=== PATIENT | female | born 1990 | race Caucasian/White ===

== ENCOUNTER 2023-04-06 12:30 | Emergency (ER) | payer OTHER ==
[~2023-04-06] VITALS: Ht 160 cm; Wt 59.0 kg
[~2023-04-06 12:30] MED LIST: CEPH500 PO; DOXY100 PO; HYDACE5 PO; IBUP800 PO; OXYACE5T PO; Peridex480 ML SS; SULTRIDS PO; Veetids 500500 MG PO
[2023-04-06 12:58] VITALS: BP 129/81
[2023-04-06] MEDS ORDERED: CLIN300 PO (13:29)
== END 2023-04-06 13:43 | disposition home or self-care (01) ==
LOC: ER 12:30
DX: S02.5XXA Fracture of tooth (traumatic), initial encounter for closed fracture (principal); K04.7 Periapical abscess without sinus; X58.XXXA Exposure to other specified factors, initial encounter
CPT/HCPCS: 99282

== ENCOUNTER → 2023-12-11 | Outpatient (CLI) | payer OTHER ==
[~2023-12-11] MED LIST changes: +CLIN300 PO
== END ==
LOC: LAB SHORT 10:07 → LAB 10:07
DX: O09.90 Supervision of high risk pregnancy, unspecified, unspecified trimester (principal)
CPT/HCPCS: 87081; 87150

== ENCOUNTER 2023-12-24 15:45 | Inpatient (IN) | payer OTHER ==
[2023-12-24] VITALS (11 sets, daily range): BP systolic 102–143; BP diastolic 58–79
[2023-12-24] MEDS ORDERED: Misoprostol 200 MCG Tab PR PRN ×2 (16:10→17:50)
[2023-12-24] MEDS ORDERED: Methylergonovine Maleate 0.2MG / ML 1ML Amp IM PRN ×2 (16:10→17:50)
[2023-12-24] MEDS ORDERED: Lactated Ringer's 1,000 ML IV SCH ×3 (16:10→17:50)
[2023-12-24] MEDS ORDERED: OXYTOCIN/RINGER'S LACTATE 500 ML IV PRN (16:10)
[2023-12-24] MEDS ORDERED: Ondansetron HCl 2 MG / ML 2ML Vial IV PRN (16:10)
[2023-12-24] MEDS ORDERED: Carboprost Tromethamine 250 MCG/ML 1ML Amp IM PRN ×2 (16:10→17:45)
[2023-12-24] MEDS ORDERED: ePHEDrine Sulfate 50 MG/ML 1ML Injection XX PRN (16:10)
[2023-12-24] MEDS ORDERED: Oxytocin 10 Unit / ML Vial IM PRN (16:10)
[2023-12-24] MEDS ORDERED: Calcium Carbonate 500 MG Tab Chew PO SCH (16:10)
[2023-12-24] MEDS ORDERED: Misoprostol 200 MCG Tab BC PRN (16:10)
[2023-12-24] MEDS ORDERED: Acetaminophen 500 MG Tab PO PRN ×2 (16:10→17:50)
[2023-12-24] MEDS ORDERED: Lactated Ringer's 1,000 ML IV PRN (16:10)
[2023-12-24] MEDS ORDERED: FentaNYL 2mcg/ml-Bup 0.1% Epd 250 ML EPI PRN (16:10)
[2023-12-24] MEDS ORDERED: Penicillin G Potassium 5,000,000 UNITS in NS 250 ML IV ONE (16:15)
[2023-12-24] MEDS ORDERED: Tranexamic Acid 100 ML IV SCH (16:20)
[2023-12-24 17:30] LABS: PCO2 Cord - Venous 47.5 mmHg (40-50); PO2 Cord - Venous 25.6 mmHg (28-32); pH Umbilical Cord - Venous 7.27 (7.26-7.35)
--- NOTE | 2023-12-24 17:33 | NUR ---
"Spiritual Care Attemped | Pt. request Pt. is presently in active delivery. Nurses will notify this folder tier if spiritual care in needed or requested further."
[2023-12-24] MEDS ORDERED: FLU VACC TS2024-25(6MOS UP)/PF 45 MCG/0.5 ML SYRINGE IM ONE (17:45)
[2023-12-24] MEDS ORDERED: Lanolin Cream TOP PRN (17:45)
[2023-12-24] MEDS ORDERED: OXYTOCIN/RINGER'S LACTATE 500 ML IV SCH (17:45)
[2023-12-24] MEDS ORDERED: Witch Hazel/Glycerin PADS TOP PRN (17:45)
[2023-12-24] MEDS ORDERED: Oxytocin 10 Unit / ML Vial IM ONE (17:45)
[2023-12-24] MEDS ORDERED: Ketorolac Tromethamine 30mg Vial IV PRN (17:45)
[2023-12-24] MEDS ORDERED: Ibuprofen 400 MG Tab PO PRN (17:45)
[2023-12-24] MEDS ORDERED: Docusate Sodium 100 MG Cap PO PRN (17:50)
[2023-12-24] MEDS ORDERED: Benzocaine Topical Anesthetic Spray 60GM TOP PRN (17:50)
[2023-12-24] MEDS ORDERED: Penicillin G Potassium 2,500,000 UNITS in Dextrose 5% 100 ML IV SCH (20:00)
[2023-12-24 20:50] LABS: BASOPHILS ABSOLUTE AUTO 0.06 K/mm3 (0.00-0.23); BASOPHILS PERCENT AUTO 0 % (0-2); EOSINOPHILS ABSOLUTE AUTO 0.06 K/mm3 (0.00-0.68); EOSINOPHILS PERCENT AUTO 0 % (0-6); Hematocrit 39.8 % (33.0-51.0); Hemoglobin 13.6 g/dL (11.5-16.0); IMMATURE GRAN ABSOLUTE AUTO 0.08 K/mm3 (0.00-0.10); IMMATURE GRAN PERCENT AUTO 0 % (0-1); LYMPHOCYTES ABSOLUTE AUTO 1.72 K/mm3 (0.84-5.20); LYMPHOCYTES PERCENT AUTO 9 % (21-46); MONOCYTES ABSOLUTE AUTO 1.13 K/mm3 (0.16-1.47); MONOCYTES PERCENT AUTO 6 % (4-13); Mean Corpuscular HGB 29.6 pg (26.0-34.0); Mean Corpuscular HGB Conc 34.2 g/dL (31.5-36.5); Mean Corpuscular Volume 87 fL (80-100); Mean Platelet Volume 11.2 fL (9.1-12.4); NEUTROPHILS ABSOLUTE AUTO 17.26 K/mm3 (1.96-9.15); NEUTROPHILS PERCENT AUTO 85 % (41-73); Platelet Count 285 K/mm3 (150-400); RDW Coefficient Variation 14.4 % (11.7-14.2); RDW Standard Deviation 45.4 fL (35.1-46.3); White Blood Cell Count 20.31 K/mm3 (4.00-11.30)
[2023-12-25 04:16] VITALS: BP 108/64
[2023-12-25 08:33] VITALS: BP 99/58
--- NOTE | 2023-12-25 08:55 | NUR ---
ASSUMED CARE. PT SLEEPING WELL. DENIES PAIN. NO QUESTIONS OR CONCERNS. HAS NOT BEEN UP TO SEE AND NO QUESTIONS ASKED ON HOW HE WAS DOING.
[2023-12-25] MEDS ORDERED: Prenatal Vit/FE Fumarate/FA 1 Tab PO SCH (09:00)
--- NOTE | 2023-12-25 11:10 | NUR ---
"Spiritual Care Attempted | Originally a Pt. Referral Pt. declined spiritual care at this time."
[2023-12-25 11:59] VITALS: BP 111/64
--- NOTE | 2023-12-25 12:15 | NUR ---
CPS AT BEDSIDE. PT HAS 11 YEAR OLD DAUGHTER WITH HER AND HER MOTHER AND GAVE CONSENT TO TALK IN FRONT OF THEM BOTH. MOTHER HAS BEEN UP TO NURSERY FOR APPROXIMATELY 5 MINUTES TODAY.
--- NOTE | 2023-12-25 15:26 | NUR ---
PT CONTINUES TO SLEEP. ENCOURAGED PAPERWORK TO BE FILLED OUT TO PUT HER TO BOARDER STATUS.
--- NOTE | 2023-12-25 18:20 | NUR ---
REPORT WILL BE GIVEN TO ONCOMING SHIFT. ORDER FOR PT TO BE PUT TO BOARDER STATUS BUT PT WONT STAY AWAKE LONG ENOUGH TO FILL OUT HER PAPERWORK. PT CONTINUES TO SLEEP BUT WHEN AWAKENS DENIES PAIN OR NEEDING ANYTHING.
[2023-12-25 18:25] VITALS: BP 107/62
--- NOTE | 2023-12-25 18:33 | NUR ---
MOTHER AWAKE NOW AND FINISHING UP PAPERWORK. DISCUSSED DISCHARGE INSTRUCTIONS AND FOLLOW UP APPOINTMENTS. NO QUESTIONS OR CONCERNS. LOCHIA SCANT. VSS. AFEBRILE.
== END 2023-12-25 18:45 | disposition home or self-care (01) | DRG 806 ==
LOC: OBS 15:45 → BC 15:45 → OBS 15:59 → BC 16:01
PROVIDERS: ADMIT Advanced Practice Midwife
PROC: 10E0XZZ Delivery of Products of Conception, External Approach (ICD-10-PCS; principal; 2023-12-24)
DX: O99.824 Streptococcus B carrier state complicating childbirth (principal); O98.32 Other infections with a predominantly sexual mode of transmission complicating childbirth; Z37.0 Single live birth; Z3A.38 38 weeks gestation of pregnancy; O99.324 Drug use complicating childbirth; F12.90 Cannabis use, unspecified, uncomplicated; A60.00 Herpesviral infection of urogenital system, unspecified; Z87.891 Personal history of nicotine dependence; O66.0 Obstructed labor due to shoulder dystocia; F15.10 Other stimulant abuse, uncomplicated; O99.343 Other mental disorders complicating pregnancy, third trimester; F41.8 Other specified anxiety disorders; Z79.899 Other long term (current) drug therapy
CPT/HCPCS: 36415; 82803; 85025; 86850; 86900; 86901; 99214; A9270; J1885; J2590